=== PATIENT | female | born 1985 | race Caucasian/White ===

== ENCOUNTER 2016-10-02 20:20 | Emergency (ER) | payer OTHER ==
[~2016-10-02] VITALS: Ht 152.4 cm; Wt 113.4 kg
[2016-10-02 20:35] VITALS: BP 169/83; PULSE 105; RESP 20; TEMP 97.8; O2SAT 100
--- NOTE | 2016-10-02 20:35 | NUR ---
No beds available at this time. Informed ER MD and AGENT SPA DESK of patient assessment at triage, both AGENT SPA DESK and MD state patient is stable and can be placed in the waiting room at this time.
--- NOTE | 2016-10-02 21:35 | NUR ---
Patient sitting quietly in waiting room. No acute distress noted. Vital signs within normal range. Patient talking with and playing with son. Will continue to monitor.
[2016-10-02 22:13] LABS: BILIRUBIN,URINE NEGATIVE (NEGATIVE); BLOOD, URINE 3+ (NEGATIVE); CLARITY/URINE SL HAZY (CLEAR); COLOR,URINE YELLOW (YELLOW); GLUCOSE,URINE NEGATIVE (NEGATIVE); KETONES,URINE NEGATIVE (NEGATIVE); LEUKOCYTE ESTERASE ,URINE NEGATIVE (NEGATIVE); NITRITE, URINE NEGATIVE (NEGATIVE); PROTEIN URINE NEGATIVE (NEGATIVE); UROBILINOGEN,URINE 0.2 (0.2-1.0)
[2016-10-02 22:14] LABS: BASOPHILS % (AUTO) 0.2 % (0.0-2.0); EOSINOPHILS # (AUTO) 0.1 K/uL (0.0-0.4); HEMATOCRIT 37.5 % (36-48); HEMOGLOBIN 12.4 g/dL (12.0-16.0); LYMPHOCYTES # (AUTO) 2.4 K/uL (1.0-5.5); LYMPHOCYTES % (AUTO) 20.7 % (20.5-51.5); MEAN CORPUSCULAR HEMOGLOBIN 26 pg (27-31); MEAN CORPUSCULAR HGB CONC 33 % (32-36); MEAN CORPUSCULAR VOLUME 79 fL (79.0-98.0); MONOCYTES # (AUTO) 0.8 K/uL (0.0-1.0); MONOCYTES % (AUTO) 6.5 % (1.7-9.3); NEUTROPHILS # (AUTO) 8.5 K/uL (1.8-7.7); NEUTROPHILS % (AUTO) 71.6 % (40.0-70.0); PLATELET COUNT (AUTO) 366 K/uL (130-430); RED BLOOD CELL COUNT(AUTO) 4.76 MIL/uL (4.2-6.2); WHITE BLOOD COUNT (AUTO) 11.8 K/uL (4.8-10.8)
[2016-10-02 22:22] LABS: CHLORIDE 103 mmol/L (98-107); CREATININE 0.88 mg/dL (0.55-1.30); GLUCOSE 151 mg/dL (70-99); SODIUM SERUM 135 mmol/L (136-145); UREA NITROGEN, BLOOD 16 mg/dL (8-21)
[2016-10-02 22:24] LABS: BACTERIA,URINE MODERATE /HPF (None Seen); RBC,URINE 80-100 /HPF (0-3)
[2016-10-02 22:25] LABS: MUCUS,URINE 1+ /LPF (None Seen)
[2016-10-02 22:29] LABS: ALANINE AMINOTRANSFERASE 41 U/L (12-78); ALBUMIN 3.7 g/dL (3.4-4.8); ASPARTATE AMINOTRANSFERASE 19 U/L (10-37); TOTAL BILIRUBIN 0.3 mg/dL (0.0-1.0); TOTAL PROTEIN, SERUM 8.1 g/dL (6.4-8.3)
--- NOTE | 2016-10-02 22:30 | NUR ---
Placed in room 07 . Placed on shelter monitor, blood pressure machine and pulse oximeter. To gown for exam. Side rails up. Report given to KAI Lechuga.
--- NOTE | 2016-10-02 22:30 | NUR ---
Patient AAO x4, sitting in bed, c/o vaginal spotting x 1 day that changed from "pinkish" discharge to "dark red to light red " blood when wiping vaginal area. Patient denies saturation of pads stating blood is noted when wiping. Denies abd pain, states she has bilateral lower back pain /, patient states back pain is chronic issue. Denies N/V/D, denies dysuria. No acute distress noted. Will continue to monitor.
[2016-10-02 22:32] LABS: ANION GAP < 3 (5-15); GFR AFRICAN AMERICAN 98 mL/min (>90); HCG,QUANTITATIVE 6 mIU/ML (0-6)
--- NOTE | 2016-10-02 22:40 | NUR ---
ER CHAPITO. Bethany Meyer at bedside examining patient.
[2016-10-02 23:07] VITALS: BP 148/88; PULSE 99; RESP 20; TEMP 97.8; O2SAT 100
--- NOTE | 2016-10-02 23:07 | NUR ---
Patient given written and verbal discharge instructions and verbalizes understanding. ER MD discussed with patient the results and treatment provided. Patient in stable condition. ID arm band removed. Rx of Macrobid cap given. Patient educated on pain management and to follow up with PMD. Pain Scale 0/10. Opportunity for questions provided and answered.
== END 2016-10-02 23:07 | disposition home or self-care (01) ==
LOC: SED 20:20
DX: N39.0 Urinary tract infection, site not specified (principal); J45.909 Unspecified asthma, uncomplicated
CPT/HCPCS: 36415; 76830-TC; 76857; 80053; 81000-TC; 84702-TC; 85025; 86900; 86901; 87086; 99285

== ENCOUNTER 2017-07-16 20:41 | Emergency (ER) | payer OTHER ==
[~2017-07-16] VITALS: Ht 152.4 cm; Wt 103.9 kg
[2017-07-16 20:53] VITALS: BP_SYST 143
[2017-07-16 22:01] LABS: BASOPHILS % (AUTO) 0.3 % (0.0-2.0); EOSINOPHILS # (AUTO) 0.2 K/uL (0.0-0.4); EOSINOPHILS % (AUTO) 1.5 % (0.0-4.0); HEMATOCRIT 35.9 % (36-48); HEMOGLOBIN 11.8 g/dL (12.0-16.0); MEAN CORPUSCULAR HEMOGLOBIN 27 pg (27-31); MEAN CORPUSCULAR HGB CONC 33 % (32-36); MEAN CORPUSCULAR VOLUME 83 fL (79.0-98.0); MONOCYTES # (AUTO) 0.6 K/uL (0.0-1.0); MONOCYTES % (AUTO) 5.7 % (1.7-9.3); NEUTROPHILS # (AUTO) 6.8 K/uL (1.8-7.7); NEUTROPHILS % (AUTO) 64.5 % (40.0-70.0); PLATELET COUNT (AUTO) 363 K/uL (130-430); RED BLOOD CELL COUNT(AUTO) 4.34 MIL/uL (4.2-6.2); WHITE BLOOD COUNT (AUTO) 10.6 K/uL (4.8-10.8)
[2017-07-16 23:00] VITALS: BP_SYST 128
== END 2017-07-16 23:00 | disposition home or self-care (01) ==
LOC: SED 20:41
DX: O20.0 Threatened abortion (principal); J45.909 Unspecified asthma, uncomplicated; Z3A.12 12 weeks gestation of pregnancy
CPT/HCPCS: 36415; 76815; 84702-TC; 85025; 99285